=== PATIENT | male | born 1995 | race Two or more races ===

== ENCOUNTER 2022-05-22 13:44 | Emergency (ER) | payer OTHER ==
[~2022-05-22] VITALS: Ht 175.3 cm; Wt 70.3 kg
== END 2022-05-22 17:17 | disposition home or self-care (01) ==
LOC: ER 13:44
DX: S61.216A Laceration without foreign body of right little finger without damage to nail, initial encounter (principal); X58.XXXA Exposure to other specified factors, initial encounter; Y93.9 Activity, unspecified; Y92.9 Unspecified place or not applicable; Y99.9 Unspecified external cause status